=== PATIENT | male | born 1995 | race Two or more races ===

== ENCOUNTER 2018-02-09 13:42 | Emergency (ER) | payer SELFPAY ==
[2018-02-09] MEDS ORDERED: Diphtheria,Pertussis(Acell),Tetanus Vaccine 0.5 ML SDV IM ONE (14:19)
[2018-02-09] MEDS ORDERED: Lidocaine 1% 20 ML MDV INJECT ONE (14:19)
--- NOTE | 2018-02-09 14:23 | EDM.PDOC ---
ED HPI GENERAL MEDICAL PROBLEM - General Chief Complaint: Upper Extremity Injury/Pain Stated Complaint: LT HAND INJURY Time Seen by Provider: 02/09/18 13:45 Source of Information: Reports: Patient History Limitations: Reports: No Limitations - History of Present Illness INITIAL COMMENTS - FREE TEXT/NARRATIVE: Patient is a 22-year-old male who presents to the ED complaining of nail gun injury to the dorsal aspect of the left hand. States he accidentally shot himself with a nail gun. He pulled the nail out but had to clip one of the retaining wires to remove the nail. Bleeding is minimal. Pain is minimal at this time. Tetanus status unknown. No sensory motor deficits noted. Just slight swelling to the affected area. States the piece of the wire remains in his hand. Left Hand Pain Score (Numeric/FACES): 5 - Related Data Allergies Allergy/AdvReac Type Severity Reaction Status Date / Time No Known Allergies Allergy Verified 02/09/18 13:47 Home Meds: Home Meds Cephalexin [Keflex] 500 mg PO QID #28 capsule 02/09/18 [Rx] Past Medical History Psychiatric History: Reports: Anxiety - Infectious Disease History Infectious Disease History: Reports: Chicken Pox Social & Family History - Family History Family Medical History: Noncontributory - Tobacco Use Smoking Status *Q: Current Every Day Smoker Years of Tobacco use: 2 Packs/Tins Daily: 0.5 - Caffeine Use Caffeine Use: Reports: Coffee, Soda - Recreational Drug Use Recreational Drug Use: Yes Drug Use in Last 12 Months: Yes Recreational Drug Type: Reports: Marijuana/Hashish, Methamphetamine Review of Systems - Review of Systems Review Of Systems: ROS reveals no pertinent complaints other than HPI. ED EXAM, GENERAL - Physical Exam Exam: See Below Exam Limited By: No Limitations General Appearance: Alert, WD/WN, No Apparent Distress Ears: Hearing Grossly Normal Nose: Normal Inspection Throat/Mouth: Normal Voice, No Airway Compromise Neck: Normal Inspection, Supple Respiratory/Chest: No Respiratory Distress, No Accessory Muscle Use Cardiovascular: Normal Peripheral Pulses, Regular Rate, Rhythm Peripheral Pulses: 2+: Radial (R) Extremities: Other (Two puncture wounds to the dorsal aspect of the left hand with swelling and pain present. Minimal bruising present. No bleeding. ) Neurological: Alert, Oriented, CN II-XII Intact, Normal Cognition, No Motor/ Sensory Deficits Psychiatric: Normal Affect, Normal Mood Skin Exam: Warm, Dry, Normal Color ED TRAUMA EXTREMITY PROCEDURES - Laceration/Wound Repair Left Dorsal Hand Lac/Wound Length In cm: 0.1 - Foreign Body Removal Indication:: Removal of metal fragment to puncture site left hand. Risks, benefits, and alternative treatments discussed with the patient. Risks being: Infection, pain , and bleeding. Patient voiced understanding and elected to proceed. Consent Obtained: Patient Performing Doctor:: Nhi Monroy Anesthesia Type: Local (1% lidocaine 5 mls) Findings:: metal fragment present. unable to remove. Complications:: No Course - Vital Signs Last Recorded V/S: Last Vital Signs Temp 98.2 F 02/09/18 13:47 Pulse 79 02/09/18 13:47 Resp 20 02/09/18 13:47 BP 142/88 H 02/09/18 13:47 Pulse Ox 98 02/09/18 13:47 - Orders/Labs/Meds Meds: Medications Discontinued Medications Generic Name Dose Route Start Last Admin Trade Name Bijanq PRN Reason Stop Dose Admin Cephalexin 500 mg 02/09/18 16:24 02/09/18 16:42 Keflex PO 02/09/18 16:25 500 mg ONETIME ONE Administration Diphtheria/Tetanus/Acell Pertussis 0.5 ml 02/09/18 14:19 02/09/18 14:35 Adacel IM 02/09/18 14:20 0.5 ml .ONCE ONE Administration Lidocaine HCl 20 ml 02/09/18 14:19 02/09/18 14:37 Xylocaine 1% INJECT 02/09/18 14:20 Not Given ONETIME ONE Lidocaine HCl Confirm 02/09/18 14:29 02/09/18 14:36 Xylocaine 1% Administered 02/09/18 14:30 20 ml Dose Administration 20 ml .ROUTE .STK-MED ONE - Re-Assessments/Exams Free Text/Narrative Re-Assessment/Exam: Ordered x-ray of the left hand, Adacel, and lidocaine. 02/09/18 15:20 X-ray of the left hand does not reveal any acute bony abnormalities. Small metallic substance remains in the hand. Suspect this is more likely from one of the barbs from the nail. X-ray of the left hand does reveal small metallic material to the dorsal aspect of hand proximal to the puncture site. Dejuan Monroy PA-C attempted to remove the foreign object under local anesthesia. Unfortunately the metallic particulate was not able to be removed. I have ordered keflex 500mg PO x 1. Patient will be discharged home with instructions as documented. The patient remained hemodynamically stable while under my care in the E.D. I discussed the concerning symptoms for which to returnto the E.D. with the patient/family. The patient/family verbalized understanding. All questions were answered. Departure - Departure Time of Disposition: 16:51 Disposition: Home, Self-Care 01 Condition: Good Clinical Impression: Puncture wound of left hand with foreign body Qualifiers: Encounter type: initial encounter Qualified Code(s): S61.442A - Puncture wound with foreign body of left hand, initial encounter - Discharge Information Prescriptions: Cephalexin [Keflex] 500 mg PO QID #28 capsule Instructions: Puncture Wound, [id number] Referrals: PCP,None [Primary Care Provider] - Forms: ED Department Discharge Additional Instructions: Cleanse site twice daily soap and water, pat dry, reapply Triple Antibiotic ointment, and dressing. Do not soak wound. Keep area clean and dry. Take the full course of Keflex as prescribed. Follow-up with orthopedic surgeon of your choice this coming week for reevaluation to have a metallic substance removed. Please return back to the ED if you develop any new or worsening symptoms.
[2018-02-09] MEDS ORDERED: Lidocaine 1% 10 ML MDV ONE (14:29)
[2018-02-09] MEDS ORDERED: Cephalexin 500 MG Cap PO ONE (16:24)
--- NOTE | 2018-02-12 07:15 | CR ---
Left hand: Four views of the left hand were obtained. Comparison: No previous study. Metallic foreign body is projected within the dorsal soft tissues at the level of the second metacarpal shaft. Joint spaces are preserved. No acute fracture or other bony abnormality is seen. Impression: 1. Metallic foreign body as noted above. No acute bony abnormality is seen. Diagnostic code #3
== END 2018-02-09 17:09 | disposition home or self-care (01) ==
LOC: JD.ED 13:42
DX: S61.442A Puncture wound with foreign body of left hand, initial encounter (principal); F17.210 Nicotine dependence, cigarettes, uncomplicated; Z23 Encounter for immunization; W29.4XXA Contact with nail gun, initial encounter
CPT/HCPCS: 73130; 90471; 90715; 99283; A9270; 99284